=== PATIENT | male | born 1980 | race Two or more races ===

== ENCOUNTER 2018-10-01 18:39 | Emergency (ER) | payer OTHER ==
[~2018-10-01] VITALS: Ht 182.9 cm; Wt 68.0 kg
[2018-10-01 19:03] VITALS: BP 134/87
[2018-10-01] MEDS ORDERED: ACETAMINOPHEN ES 500 MG TABLET ONE (19:21)
[2018-10-01] MEDS ORDERED: predniSONE 20 MG TABLET ONE (19:21)
[2018-10-01] MEDS ORDERED: PENICILLIN G BENZATHINE 2.4 MMU/4 ML ML IM ONE ×2 (19:22→19:30)
[2018-10-01] MEDS ORDERED: predniSONE 20 MG TABLET PO ONE (19:30)
[2018-10-01] MEDS ORDERED: ACETAMINOPHEN ES 500 MG TABLET PO ONE (19:30)
== END 2018-10-01 19:59 | disposition home or self-care (01) ==
LOC: ER 18:44
DX: J02.0 Streptococcal pharyngitis (principal); F17.200 Nicotine dependence, unspecified, uncomplicated; K21.9 Gastro-esophageal reflux disease without esophagitis
CPT/HCPCS: 96372; 99283; 99406; J0558; J7512